=== PATIENT | male | born 1945 | race Caucasian/White ===

== ENCOUNTER 2018-01-18 22:33 | Observation (INO) | payer OTHER ==
--- NOTE | 2018-01-18 22:44 | Emergency Department Record ---
History of Present Illness - General Chief complaint: Pain Stated complaint: CHEST TIGHTNESS,SIDE AND BACK PAIN Time Seen by Provider: 01/18/18 22:43 Source: Patient Mode of Arrival: Ambulatory Limitations: No limitations - History of Present Illness Initial comments: 72 yo male presents to ED for evaluation of left-sided chest pain symptoms that began 3 days ago, reports pain with deep inspiration. Patient denies previous history of DVT/PE, reports mild cough symptoms without fevers, chills, nausea, or vomiting symptoms. Patient denies health problems at his baseline. MD Complaint: Other Onset/Timin -: Days(s) History of Same: No Quality: Sharp, Stabbing Consistency: Intermittent Improves with: Nothing Worsens with: Other (deep breaths) Associated Symptoms: Denies other symptoms - Related Data Home Medications Medication Instructions Recorded Confirmed Last Taken Finasteride [Finasteride] 1 mg PO DAILY 01/18/18 01/18/18 Unknown Allergies Allergy/AdvReac Type Severity Reaction Status Date / Time No Known Drug Allergies Allergy Verified 05/09/15 10:33 Review of Systems Constitutional: Denies: Chills, Fever, Malaise, Night sweats Eyes: Denies: Eye discharge, Eye pain ENT: Denies: Congestion, Ear pain, Epistaxis Respiratory: Reports: Cough. Denies: Dyspnea Cardiovascular: Reports: Chest pain. Denies: Dyspnea on exertion, Edema Endocrine: Denies: Fatigue, Heat or cold intolerance Gastrointestinal: Denies: Abdominal pain, Nausea, Vomiting Genitourinary: Denies: Incontinence, Retention Musculoskeletal: Denies: Arthralgia, Back pain, Gout, Joint swelling Skin: Denies: Bruising, Change in color Neurological: Denies: Abnormal gait, Confusion, Headache, Seizure Psychiatric: Denies: Anxiety Hematological/Lymphatic: Denies: Anemia, Blood Clots Past Medical History - SOCIAL HISTORY Smoking Status: Heavy tobacco smoker (>10/day) - RESPIRATORY Hx Respiratory Disorders: Yes Hx Bronchitis: Yes Hx Pneumonia: Yes - CARDIOVASCULAR Hx Cardio Disorders: Yes Hx Chest Pain: Yes Comment:: Hx Triple A, descending aorta aneurysm - NEURO Hx Neuro Disorders: Yes Hx Neuropathy: Yes Comment:: doctor said has the start of neuropathy - GI Hx GI Disorders: No - Hx Genitourinary Disorders: Yes Hx Prostate Problems: Yes - ENDOCRINE Hx Endocrine Disorders: Yes Hx Diabetes: Yes - MUSCULOSKELETAL Hx Musculoskeletal Disorders: No - PSYCH Hx Psych Problems: No - HEMATOLOGY/ONCOLOGY Hx Hematology/Oncology Disorders: No Family Medical History Hx Diabetes: Mother Hx Heart Disease: Father Physical Exam - General General Appearance: Alert, Oriented x3, Cooperative, Mild distress Limitations: No limitations - Head Head exam: Atraumatic, Normocephalic, Normal inspection Head exam detail: negative: Abrasion, Contusion, Murillo's sign, General tenderness, Hematoma, Laceration - Eye Eye exam: Normal appearance. negative: Conjunctival injection, Periorbital swelling, Periorbital tenderness, Scleral icterus - ENT Ear exam: negative: Auricular hematoma, Auricular trauma Nasal Exam: negative: Active bleeding, Discharge, Dried blood, Foreign body Mouth exam: negative: Drooling, Laceration, Tongue elevation - Neck Neck exam: Normal inspection. negative: Meningismus, Tenderness - Respiratory Respiratory exam: Normal lung sounds bilaterally. negative: Rales, Respiratory distress, Rhonchi, Stridor - Cardiovascular Cardiovascular Exam: Regular rate, Normal rhythm, Normal heart sounds - GI/Abdominal GI/Abdominal exam: Soft. negative: Rebound, Rigid, Tenderness - Rectal Rectal exam: Deferred - exam: Deferred - Extremities Extremities exam: Normal inspection. negative: Calf tenderness, Pedal edema, Tenderness - Back Back exam: Denies: CVA tenderness (R), CVA tenderness (L) - Neurological Neurological exam: Alert, Normal gait, Oriented X3 - Psychiatric Psychiatric exam: Normal affect, Normal mood - Skin Skin exam: Normal color. negative: Abrasion Type of lesion: negative: abrasion Course - Reevaluation(s) Reevaluation #1: 01/18/18 22:43 EKG: NST 84 LAD, normal intervals No acute ST-T wave changes are present Reevaluation #2: 01/18/18 23:17 Labs reviewed, D-Dimer 1.69, labs are otherwise grossly unremarkable for an acute process. Will perform CTA Chest and re-evaluate. Reevaluation #3: 01/19/18 02:04 CTA Chest: No PE Few bilateral pulmonary nodules, inflammatory vs. neoplastic-F/U in 3 months recommended Emphysema Patient was updated on all results, will admit for further evaluation. Medical Decision Making - Lab Data Result diagrams: 01/18/18 22:50 01/18/18 22:50 Disposition Disposition: Admit Clinical Impression: Chest pain Qualifiers: Chest pain type: unspecified Qualified Code(s): R07.9 - Chest pain, unspecified COPD (chronic obstructive pulmonary disease) Qualifiers: COPD type: unspecified COPD Qualified Code(s): J44.9 - Chronic obstructive pulmonary disease, unspecified Disposition: Acute Care Hospital Transfer Decision to Admit: Admit from ER Decision to Admit Date: 01/19/18 Decision to Admit Time: 02:08 Condition: (2) Stable Forms: Patient Portal Access Quality - Quality Measures Quality Measures: N/A - Blood Pressure Screening Does Patient Have Any of the Following: No Blood Pressure Classification: Pre-Hypertensive BP Reading Systolic Measurement: 166 Diastolic Measurement: 85 Screening for High Blood Pressure: < Pre-Hypertensive BP, F/U Documented > [ G8950] Pre-Hypertensive Follow-up Interventions: Referral to alternative/primary care provider.
[2018-01-18 22:58] LABS: BASO % 0.6 % (0-6); EOS % 3.1 % (0-6); GRAN % 51.6 % (47-80); HEMATOCRIT 42.8 % (42.0-52.0); HEMOGLOBIN 14.5 gm/dl (14.0-18.0); LYMPH % 33.5 % (16-45); MEAN CELL VOLUME 91.6 fl (81-97); MEAN CORPUSCULAR HGB CONC 33.9 g/dl (32-36); MEAN PLATELET VOLUME 9.3 fl (7.4-10.4); MONO % 11.2 % (0-9); PLATELET COUNT 305 K/uL (130-400); RED BLOOD COUNT 4.67 M/uL (4.40-5.70); RED CELL DISTRIBUTION WIDTH 13.1 % (11.5-14.5); WHITE BLOOD COUNT W/O DIFF 7.8 K/uL (4.2-12.2)
[2018-01-18] MEDS ORDERED: 0.9 % SODIUM CHLORIDE 1000ML 1,000 ML IV SCH (23:00)
[2018-01-18 23:04] LABS: BLOOD UREA NITROGEN 15 mg/dL (8-23); CREATININE 0.8 mg/dL (0.7-1.2); EST GLOMERULAR FILTRATION RATE > 60 mL/min
[2018-01-18 23:05] LABS: TOTAL PROTEIN 6.2 g/dL (6.6-8.7)
[2018-01-18 23:07] LABS: GLUCOSE,RANDOM 240 mg/dL (74-109)
[2018-01-18 23:10] LABS: ALB/GLOB RATIO 1.3 (1.1-1.8); ALBUMIN 3.5 g/dL (4.0-5.0); ALKALINE PHOSPHATASE 83 U/L (40-129)
[2018-01-19] MEDS ORDERED: METHYLPREDNISOLONE PF 125MG/VIAL IVP ONE (02:06)
[2018-01-19] MEDS ORDERED: KETOROLAC 30 MG/ML VIAL IVP ONE (02:06)
[2018-01-19] MEDS ORDERED: IPRATROPIUM/ALBUTEROL (0.5MG/3MG) NEB INH ONE (02:06)
[2018-01-19] MEDS ORDERED: ALBUTEROL SULFATE (0.083%) 2.5 MG/3 ML NEB INH PRN (02:34)
[2018-01-19] MEDS ORDERED: 0.9 % SODIUM CHLORIDE 1000ML 1,000 ML IV PRN (02:34)
[2018-01-19] MEDS: TAMSULOSIN HCL 0.4 MG CAP.ER.24H PO SCH ×2 (03:13→09:43)
[2018-01-19] MEDS: IPRATROPIUM/ALBUTEROL (0.5MG/3MG) NEB INH SCH ×3 (06:14→14:41)
[2018-01-19] MEDS ORDERED: METFORMIN 500 MG TABLET PO SCH (08:00)
[2018-01-19] MEDS ORDERED: FINASTERIDE 1 MG PO SCH (10:00)
[2018-01-19] MEDS ORDERED: METHYLPREDNISOLONE PF 125MG/VIAL IVP SCH (10:00)
--- NOTE | 2018-01-19 13:23 | History & Physical ---
History of Present Illness - Date of Service Date of Service for History & Physical: 01/19/18 - History of Present Illness Admitting Diagnosis: Chest pain. COPD History of Present Illness: 72yo male with CC of left rib pain. He has history of descending aortic aneurysm followed by the [place]. Patient presented for acute onset of a sharp left sided pain beginning last night after getting up for a drink of water. He says it felt like a sharp, cramping sensation under his left ribs. He decided to come to the ED. While in the ED, He had EKG that was negative for ST changes and unchanged from prior. 1st set of CE returned within normal. His DDimer was elevated so he underwent CTA which was negative for PE or other acute findings. He received solumedrol and breathing treatments and admitted for serial enzymes. 01/19/18- Patient states his pain resolved last evening. He denies any further pain in the chest or side. He said the pain didn't come on with activity and rest did not improve the pain. He denied feeling short of breath, nauseated, left arm pain, jaw pain or palpitations. He said the pain was located under his last ribs on the left side. He had pain like this in the past that was self resolving. He says he has some baseline cough and was coughing some yesterday, but denies feeling sick or like he has chest congestion. He denies any shortness of breath, difficulty breathing, or cough today. He follows with the [place] and [facility] for his aneurysm. He has had a stress test about 3 years ago that was normal and denies any cardiac history. Travel Screening - Travel/Exposure Within Last 30 Days Have you traveled within the last 30 days?: No - Travel/Exposure Within Last Year Have you traveled outside the [place] in the last year?: No - Additonal Travel Details Have you been exposed to anyone with a communicable illness?: No - Travel Symptoms Symptom Screening: None Review of Systems Constitutional: Denies: Chills, Fever, Malaise, Night sweats Eyes: Denies: Eye discharge, Eye pain ENT: Denies: Congestion, Ear pain, Epistaxis Respiratory: Reports: Cough. Denies: Dyspnea Cardiovascular: Reports: Chest pain. Denies: Dyspnea on exertion, Edema Endocrine: Denies: Fatigue, Heat or cold intolerance Gastrointestinal: Denies: Abdominal pain, Nausea, Vomiting Genitourinary: Denies: Incontinence, Retention Musculoskeletal: Denies: Arthralgia, Back pain, Gout, Joint swelling Skin: Denies: Bruising, Change in color Neurological: Denies: Abnormal gait, Confusion, Headache, Seizure Psychiatric: Denies: Anxiety Hematological/Lymphatic: Denies: Anemia, Blood Clots Past Medical History - SOCIAL HISTORY Smoking Status: Former smoker Alcohol Use: None Drug Use: None - RESPIRATORY Hx Respiratory Disorders: Yes Hx Bronchitis: Yes Hx Pneumonia: Yes - CARDIOVASCULAR Hx Cardio Disorders: Yes Hx Chest Pain: Yes Comment:: Hx AAA, descending aortic aneurysm - NEURO Hx Neuro Disorders: Yes Hx Neuropathy: Yes Comment:: doctor said has the start of neuropathy - GI Hx GI Disorders: No - Hx Genitourinary Disorders: Yes Hx Prostate Problems: Yes - ENDOCRINE Hx Endocrine Disorders: Yes Hx Diabetes: Yes (oral controlled) - MUSCULOSKELETAL Hx Musculoskeletal Disorders: No - PSYCH Hx Psych Problems: No - HEMATOLOGY/ONCOLOGY Hx Hematology/Oncology Disorders: No Family Medical History Any Significant Family History?: Yes Hx Diabetes: Mother Hx Heart Disease: Father H&P Meds/Allergies - Allergies Allergies: Allergies Allergy/AdvReac Type Severity Reaction Status Date / Time No Known Drug Allergies Allergy Verified 05/09/15 10:33 - Home Medications Home Medications Medication Instructions Recorded Confirmed Last Taken Finasteride [Finasteride] 1 mg PO DAILY 01/18/18 01/18/18 Unknown - Active Medications Active Medications: Current Medications Albuterol Sulfate () 2.5 mg INH RESP.Q4H PRN PRN Reason: DIFFICULTY IN BREATHING Albuterol/Ipratropium (Duoneb) 3 ml INH RESP.Q4H [facility] Last Admin: 01/19/18 10:10 Dose: 3 ml Sodium Chloride () 1,000 mls @ 15 mls/hr IV .Q24H PRN PRN Reason: LARGE VOLUME IV Metformin HCl (Glucophage Ir) 500 mg PO DAILY [facility] Methylprednisolone Sodium Succinate (Solu-Medrol) 125 mg IVP DAILY [facility] Last Admin: 01/19/18 09:42 Dose: 125 mg Non-Formulary Medication (Finasteride [Finasteride]) 1 mg PO DAILY [facility] Last Admin: 01/19/18 09:41 Dose: Not Given Tamsulosin HCl (Flomax) 0.4 mg PO BID [facility] Last Admin: 01/19/18 09:43 Dose: 0.4 mg Physical Exam - Vital Signs Vital Signs: Vital Signs - Last 24 Hrs Temp Pulse Pulse Pulse Resp BP Pulse Ox 01/19/18 10:12 95 01/19/18 10:11 95 H 17 97 01/19/18 09:48 97.9 F 99 H 16 106/49 93 L 01/19/18 09:00 86 99 H 16 01/19/18 06:14 102 H 20 96 01/19/18 02:34 97.7 F 77 20 145/72 96 - General General Appearance: Alert, Oriented x3, Cooperative, No acute distress Limitations: No limitations - Head Head exam: Atraumatic, Normocephalic, Normal inspection Head exam detail: negative: Abrasion, Contusion, Murillo's sign, General tenderness, Hematoma, Laceration - Eye Eye exam: Normal appearance. negative: Conjunctival injection, Periorbital swelling, Periorbital tenderness, Scleral icterus - ENT Ear exam: negative: Auricular hematoma, Auricular trauma Nasal Exam: negative: Active bleeding, Discharge, Dried blood, Foreign body Mouth exam: negative: Drooling, Laceration, Tongue elevation - Neck Neck exam: Normal inspection. negative: Meningismus, Tenderness - Respiratory Respiratory exam: Normal lung sounds bilaterally. negative: Rales, Respiratory distress, Rhonchi, Stridor - Cardiovascular Cardiovascular Exam: Regular rate, Normal rhythm, Normal heart sounds - GI/Abdominal GI/Abdominal exam: Soft. negative: Rebound, Rigid, Tenderness - Rectal Rectal exam: Deferred - exam: Deferred - Extremities Extremities exam: Normal inspection. negative: Calf tenderness, Pedal edema, Tenderness - Back Back exam: Denies: CVA tenderness (R), CVA tenderness (L) - Neurological Neurological exam: Alert, Normal gait, Oriented X3 - Psychiatric Psychiatric exam: Normal affect, Normal mood - Skin Skin exam: Normal color. negative: Abrasion Type of lesion: negative: abrasion Results - Labs Result Diagrams: 01/18/18 22:50 01/18/18 22:50 Labs Last 24 Hours: Laboratory Results - last 24 hr 01/19/18 06:22 Troponin T < 0.010 - Imaging and Cardiology CT scan - chest Status: Report reviewed VTE H&P Assessment - Risk for VTE Risk for VTE: Yes Risk Level: High Risk Assessment Date: 01/19/18 Risk Assessment Time: 13:31 VTE Orders Placed or Will Be Placed: Yes Plan - Detailed Diagnosis and Plan (1) Chest pain Current Visit: Yes Status: Acute Qualifiers: Chest pain type: intercostal pain Qualified Code(s): R07.82 - Intercostal pain Base Code: R07.9 - CHEST PAIN, UNSPECIFIED Comment: 01/19/18- resolved. EKG without ischemic changes. 1st and 2nd set of enzymes returned wnl. Pain is located lower in the left ribs and appears to be msk in origin. CTA was negative for PE. He had a few pulmonary nodules in the right lung that were seen on previous imaging. No acute findings on imaging. CBC and CMP were unremarkable. -continue serial enzymes -continue tele -will plan to discharge home today with [facility]. He does not need further cardiac work up at this point. (2) Full code status Current Visit: Yes Status: Acute Base Code: Z78.9 - OTHER SPECIFIED HEALTH STATUS Comment: 01/19/18- patient is full code (3) DVT prophylaxis Current Visit: Yes Status: Acute Base Code: [id number] - Comment: 01/19/18- patient is high risk with age and restricted mobility. -will do lovenox 40mg sq daily for prophylaxis
--- NOTE | 2018-01-19 15:40 | Discharge Summary ---
Providers Discharge Summary Date: 01/19/18 Date of admission: 01/19/18 02:26 Expected Date of Discharge: 01/19/18 Attending physician: ASHKAN DE LA FUENTE Physical Exam - Vital Signs Vital Signs: Vital Signs - Last 24 Hrs Temp Pulse Pulse Pulse Resp BP Pulse Ox 01/19/18 10:12 95 01/19/18 10:11 95 H 17 97 01/19/18 09:48 97.9 F 99 H 16 106/49 93 L 01/19/18 09:00 86 99 H 16 01/19/18 06:14 102 H 20 96 01/19/18 02:34 97.7 F 77 20 145/72 96 - General General Appearance: Alert, Oriented x3, Cooperative, No acute distress Limitations: No limitations - Head Head exam: Atraumatic, Normocephalic, Normal inspection Head exam detail: negative: Abrasion, Contusion, Murillo's sign, General tenderness, Hematoma, Laceration - Eye Eye exam: Normal appearance. negative: Conjunctival injection, Periorbital swelling, Periorbital tenderness, Scleral icterus - ENT Ear exam: negative: Auricular hematoma, Auricular trauma Nasal Exam: negative: Active bleeding, Discharge, Dried blood, Foreign body Mouth exam: negative: Drooling, Laceration, Tongue elevation - Neck Neck exam: Normal inspection. negative: Meningismus, Tenderness - Respiratory Respiratory exam: Normal lung sounds bilaterally. negative: Rales, Respiratory distress, Rhonchi, Stridor - Cardiovascular Cardiovascular Exam: Regular rate, Normal rhythm, Normal heart sounds - GI/Abdominal GI/Abdominal exam: Soft. negative: Rebound, Rigid, Tenderness - Rectal Rectal exam: Deferred - exam: Deferred - Extremities Extremities exam: Normal inspection. negative: Calf tenderness, Pedal edema, Tenderness - Back Back exam: Denies: CVA tenderness (R), CVA tenderness (L) - Neurological Neurological exam: Alert, Normal gait, Oriented X3 - Psychiatric Psychiatric exam: Normal affect, Normal mood - Skin Skin exam: Normal color. negative: Abrasion Type of lesion: negative: abrasion Hospitalization - Hospitalization Admission Diagnosis: Chest pain. COPD - Problem List/Discharge Diagnosis (1) Chest pain Current Visit: Yes Status: Acute Discharge Diagnosis: Chest pain type: intercostal pain Qualified Code(s): R07.82 - Intercostal pain Base Code: R07.9 - CHEST PAIN, UNSPECIFIED Comment: 01/19/18- resolved. EKG without ischemic changes. All sets of enzymes returned wnl. Pain was located lower in the left ribs and appeared to be musculoskeletal in nature. CTA was negative for PE. He had a few pulmonary nodules in the right lung that were seen on previous imaging. No acute findings on imaging. CBC and CMP were unremarkable. -will plan to discharge home today with [place] follow up. -discussed reasons to return to ED including new/worsening symptoms (2) Full code status Current Visit: Yes Status: Acute Base Code: Z78.9 - OTHER SPECIFIED HEALTH STATUS Comment: 01/19/18- patient is full code (3) DVT prophylaxis Current Visit: Yes Status: Acute Base Code: [id number] - Comment: 01/19/18- patient is high risk with age and restricted mobility. -will do lovenox 40mg sq daily for prophylaxis - Hospitalization Course Disposition: Home, Self-Care Hospital Course: 72yo male with CC of left rib pain. He has history of descending aortic aneurysm followed by the [place]. Patient presented for acute onset of a sharp left sided pain beginning last night after getting up for a drink of water. He says it felt like a sharp, cramping sensation under his left ribs. He decided to come to the ED. While in the ED, He had EKG that was negative for ST changes and unchanged from prior. 1st set of CE returned within normal. His DDimer was elevated so he underwent CTA which was negative for PE or other acute findings. He received solumedrol and breathing treatments and admitted for serial enzymes. 01/19/18- Patient states his pain resolved last evening. He denies any further pain in the chest or side. He said the pain didn't come on with activity and rest did not improve the pain. He denied feeling short of breath, nauseated, left arm pain, jaw pain or palpitations. He said the pain was located under his last ribs on the left side. He had pain like this in the past that was self resolving. He says he has some baseline cough and was coughing some yesterday, but denies feeling sick or like he has chest congestion. He denies any shortness of breath, difficulty breathing, or cough today. He follows with the [place] and [facility] for his aneurysm. He has had a stress test about 3 years ago that was normal and denies any cardiac history. Condition at Discharge: (2) Stable Discharge Medications - Discharge Medications Home Medications: Ambulatory Orders Metformin HCl [Fortamet] 500 mg PO DAILY 03/02/15 [Last Taken 03/01/15] Tamsulosin HCl [Flomax] 0.4 mg PO BID 03/02/15 [Last Taken 03/01/15] Finasteride 1 mg PO DAILY 01/18/18 [Last Taken Unknown] Discharge Plan - Discharge Instructions Activity at Discharge: Resume Usual Activities As Tolerated Diet at Discharge: Low Fat, Low Cholesterol, Low Salt Diet Additional Instructions: Follow up with your provider at the [place]. Hold your metformin until 01/21 then may resume. continue all other home medications. Please call with any questions or concerns Return to ED for any new or worsening concerns Quality Measures - Quality Measures Quality Measures: Advance Directives, Documentation of Current Medications in Medical Record, Elder Maltreatment Screen and Follow-Up Plan, Screening for High Blood Pressure and F/U Documented - Current Medications Quality Measure: Measure #130: Documentation of Current Medications Documentation of Current Medications: <Current Medications Documented/Reviewed> [G8427] - Blood Pressure Screening Quality Measure: Screening for High Blood Pressure and Follow-Up Documented Does Patient Have Any of the Following: No, Active Dx of HTN Blood Pressure Classification: Pre-Hypertensive BP Reading Systolic Measurement: 124 Diastolic Measurement: 81 Screening for High Blood Pressure: < Pre-Hypertensive BP, F/U Documented > [ G8950] Pre-Hypertensive Follow-up Interventions: Referral to alternative/primary care provider. - Advance Directives Quality Measure: Measure #47: Care Plan Advance Directives Established: No Advance Directives Information Provided To Patient: No Advance Directives on File: No Living Will: No Power of Liquor Rectifier: No Advance Care Planning: <Care Plan/Decision Maker Not Decided; Discussed & Documented> [8948T] - Elder Abuse Suspicion Index Screening: Elder Abuse Suspicion Index Screening Rely on people for bathing, dressing, shopping, banking, etc: No Prevented from getting food, clothes, medication, etc: No Made to feel shamed or threatened by someone: No Forced to sign papers or use money against will: No Feel afraid, touched in ways not wanted or hurt physically: No Poor eye contact, withdrawn, malnourished, cuts or bruises: No Screening Result: Negative result EASI Reference Information: Jerrod PATHAK, Chelsey C, Renard D, Genevieve Granados.Development and validation of a tool to assist physicians identification of elder abuse: The Elder Abuse Suspicion Index (EASI ). Journal of Elder Abuse and Neglect, 2008; 20 (3): 276-300. - Elder Maltreatment Screen Quality Measures: Elder Maltreatment Screen and Follow-Up Plan Elder Maltreatment Screen: <Negative, No Follow-Up Plan Required> [G8734]
== END 2018-01-19 16:45 | disposition home or self-care (01) ==
LOC: ER 22:33 → MEDSURG 01-19 02:26
PROVIDERS: ADMIT Internal Medicine; ATTEND Internal Medicine
DX: R07.82 Intercostal pain (principal); I71.4 Abdominal aortic aneurysm, without rupture; J44.9 Chronic obstructive pulmonary disease, unspecified; Z87.891 Personal history of nicotine dependence; E11.9 Type 2 diabetes mellitus without complications; Z79.84 Long term (current) use of oral hypoglycemic drugs
CPT/HCPCS: 99285 ×2; 96374; 96375; 85025; 80053; 84484 ×2; 85379; 94640 ×2; 94761; 93005; 93010; G0378; J1885; 99236; J2930; J7030

== ENCOUNTER 2018-09-04 15:56 | Emergency (ER) | payer MEDICARE, OTHER ==
--- NOTE | 2018-09-04 16:18 | Emergency Department Record ---
History of Present Illness - General Chief Complaint: Abdominal Pain Stated Complaint: ABD PAIN,URINARY PAIN Time Seen by Provider: 09/04/18 16:16 Source: Patient, RN notes reviewed Mode of Arrival: Ambulatory - History of Present Illness Initial Comments: burning on urination stated about 3 days ago and left testicle is sore, epidydmitis is sore but no signs of torsion. [facility] [place]. PMH TURP by Dr. Wilks about 6 weeks ago, also AAA 4.5 cm and hasn't changed in 3 years. Wuit smoking one year ago. Location: Suprapubic Radiation: None Migration to: No migration Severity: Mild Severity scale (1-10): 5 - Related Data Previous Rx's Medication Instructions Recorded Ciprofloxacin HCl [Cipro] 500 mg PO Q12HR #20 tablet 09/04/18 Allergies Allergy/AdvReac Type Severity Reaction Status Date / Time Penicillins Allergy HIVES Verified 09/04/18 16:07 Travel Screening - Travel/Exposure Within Last 30 Days Have you traveled within the last 30 days?: No Review of Systems Reviewed: No additional complaints except as noted below Constitutional: Reports: As per HPI. Denies: Chills, Fever, Malaise, Night sweats, Weakness, Weight change Eyes: Reports: As per HPI. Denies: Eye discharge, Eye pain, Photophobia, Vision change ENT: Reports: As per HPI. Denies: Congestion, Dental pain, Ear pain, Epistaxis , Hearing loss, Throat pain Respiratory: Reports: As per HPI. Denies: Cough, Dyspnea, Hemoptysis, Stridor, Wheezes Cardiovascular: Reports: As per HPI. Denies: Arrhythmia, Chest pain, Dyspnea on exertion, Edema, Murmurs, Orthopnea, Palpitations, Paroxysmal nocturnal dyspnea, Rheumatic Fever, Syncope Endocrine: Reports: As per HPI. Denies: Fatigue, Heat or cold intolerance, Polydipsia, Polyuria Gastrointestinal: Reports: As per HPI. Denies: Abdominal pain, Constipation, Diarrhea, Hematemesis, Hematochezia, Melena, Nausea, Vomiting Genitourinary: Reports: As per HPI, Dysuria, Frequency, Testicular pain. Denies : Hematuria, Incontinence, Retention, Testicular mass, Urgency Musculoskeletal: Reports: As per HPI. Denies: Arthralgia, Back pain, Gout, Joint swelling, Myalgia, Neck pain Skin: Reports: As per HPI. Denies: Bruising, Change in color, Change in hair/ nails, Lesions, Pruritus, Rash Neurological: Reports: As per HPI. Denies: Abnormal gait, Confusion, Headache, Numbness, Paresthesias, Seizure, Tingling, Tremors, Vertigo, Weakness Psychiatric: Reports: As per HPI. Denies: Anxiety, Auditory hallucinations, Depression, Homicidal thoughts, Suicidal thoughts, Visual hallucinations Hematological/Lymphatic: Reports: As per HPI. Denies: Anemia, Blood Clots, Easy bleeding, Easy bruising, Swollen glands Past Medical History - SOCIAL HISTORY Smoking Status: Former smoker Alcohol Use: None Drug Use: None - RESPIRATORY Hx Respiratory Disorders: Yes Hx Bronchitis: Yes Hx Pneumonia: Yes - CARDIOVASCULAR Hx Cardio Disorders: Yes Hx Chest Pain: Yes Comment:: Hx AAA, descending aortic aneurysm - NEURO Hx Neuro Disorders: Yes Hx Neuropathy: Yes - GI Hx GI Disorders: No - Hx Genitourinary Disorders: Yes Hx Prostate Problems: Yes - ENDOCRINE Hx Endocrine Disorders: Yes Hx Diabetes: Yes (oral controlled) - MUSCULOSKELETAL Hx Musculoskeletal Disorders: No - PSYCH Hx Psych Problems: No - HEMATOLOGY/ONCOLOGY Hx Hematology/Oncology Disorders: No Family Medical History Any Significant Family History?: Yes Hx Diabetes: Mother Hx Heart Disease: Father Physical Exam - General General Appearance: Alert, Oriented x3, Cooperative, No acute distress - Head Head exam: Normal inspection - Eye Eye exam: Normal appearance, PERRL Pupils: Normal accommodation - ENT ENT exam: Normal exam, Mucous membranes moist, Normal external ear exam, Normal orophraynx, TM's normal bilaterally Ear exam: Normal external inspection. negative: External canal tenderness Nasal Exam: Normal inspection. negative: Discharge, Sinus tenderness Mouth exam: Normal external inspection, Tongue normal Teeth exam: Normal inspection. negative: Dental caries Throat exam: Normal inspection. negative: Tonsillar erythema, Tonsillar exudate - Neck Neck exam: Normal inspection, Full ROM. negative: Tenderness - Respiratory Respiratory exam: Normal lung sounds bilaterally. negative: Respiratory distress - Cardiovascular Cardiovascular Exam: Regular rate, Normal rhythm, Normal heart sounds - GI/Abdominal GI/Abdominal exam: Soft, Normal bowel sounds. negative: Tenderness - Rectal Rectal exam: Deferred - exam: Deferred, Testicular tenderness (epididymitis pain and no signs of torsion) - Extremities Extremities exam: Normal inspection, Full ROM, Normal capillary refill. negative: Tenderness - Back Back exam: Reports: Normal inspection, Full ROM. Denies: Muscle spasm, Rash noted, Tenderness - Neurological Neurological exam: Alert, Normal gait, Oriented X3, Reflexes normal - Psychiatric Psychiatric exam: Normal affect, Normal mood - Skin Skin exam: Dry, Intact, Normal color, Warm Course Vital Signs 09/04/18 16:02 Temperature 97.4 F L Pulse Rate 105 H Respiratory 20 Rate Blood Pressure 128/66 Pulse Ox 96 - Reevaluation(s) Reevaluation #1: patient said he will use naprosyn for his pain and he has plenty of that. 09/04/18 17:36 Medical Decision Making - Data Complexity MDM Data: Labs Ordered and/or Reviewed (ua wbc 21-35 ,panchito one plus,WBC 8,900), X -Ray Ordered and/or Reviewed (US scrotum negative) - Lab Data Result diagrams: 09/04/18 16:35 09/04/18 16:48 Disposition Clinical Impression: UTI (urinary tract infection) Qualifiers: Urinary tract infection type: acute cystitis Hematuria presence: without hematuria Qualified Code(s): N30.00 - Acute cystitis without hematuria Disposition: Home, Self-Care Condition: (1) Good Instructions: Urinary Tract Infection in Men (ED) Additional Instructions: follow up with family Dr in 3 days [facility] follow up with Dr. Hagan in 7 day return if worse naprosyn twice a day for pain he already has that Prescriptions: Ciprofloxacin HCl [Cipro] 500 mg PO Q12HR #20 tablet Forms: Patient Portal Access Time of Disposition: 17:37 Quality - Quality Measures Quality Measures: N/A - Blood Pressure Screening Does Patient Have Any of the Following: No Blood Pressure Classification: Pre-Hypertensive BP Reading Systolic Measurement: 128 Diastolic Measurement: 66 Screening for High Blood Pressure: < Pre-Hypertensive BP, F/U Documented > [ G8950] Pre-Hypertensive Follow-up Interventions: Referral to alternative/primary care provider.
[2018-09-04 16:26] LABS: URINE BILIRUBIN NEGATIVE (NEGATIVE); URINE BLOOD MODERATE (NEGATIVE); URINE COLOR YELLOW; URINE GLUCOSE (UA) NEGATIVE (NEGATIVE); URINE KETONE NEGATIVE (NEGATIVE); URINE LEUKOCYTE ESTERASE TRACE (NEGATIVE); URINE NITRITE NEGATIVE (NEGATIVE); URINE UROBILINOGEN 0.2 E.U./dL (0.20 - 1.00)
[2018-09-04 16:37] LABS: URINE APPEARANCE SL CLOUDY
[2018-09-04 16:49] LABS: URINE EPITHELIAL CELLS 0 - 2 (FEW); URINE WBC 21 - 35 (0-2/hpf)
[2018-09-04 16:50] LABS: URINE BACTERIA 1+
[2018-09-04 16:53] LABS: BASO % 0.5 % (0-6); EOS % 0.9 % (0-6); GRAN % 77.4 % (47-80); HEMOGLOBIN 14.7 gm/dl (14.0-18.0); LYMPH % 15.9 % (16-45); MEAN CELL VOLUME 91.3 fl (81-97); MEAN CORPUSCULAR HEMOGLOBIN 29.2 pg (27-33); MEAN PLATELET VOLUME 9.5 fl (7.4-10.4); MONO % 5.3 % (0-9); PLATELET COUNT 267 K/uL (130-400); RED BLOOD COUNT 5.04 M/uL (4.40-5.70); RED CELL DISTRIBUTION WIDTH 13.2 % (11.5-14.5); WHITE BLOOD COUNT W/O DIFF 8.9 K/uL (4.2-12.2)
[2018-09-04 16:58] LABS: BLOOD UREA NITROGEN 18 mg/dL (8-23); CREATININE 0.9 mg/dL (0.7-1.2); EST GLOMERULAR FILTRATION RATE > 60 mL/min
[2018-09-04 17:01] LABS: GLUCOSE,RANDOM 143 mg/dL (74-109)
[2018-09-04] MEDS ORDERED: CIPROFLOXACIN HCL 500 MG TABLET PO ONE (17:28)
--- NOTE | 2018-09-08 14:42 | ULTRASOUND REPORT ---
EXAM: EMERGENCY SCROTAL ULTRASOUND WITH DOPPLER HISTORY: LEFT TESTICULAR PAIN FOR TWO WEEKS. HAD TURP SIX WEEKS AGO. PATIENT FEELS A LUMP. TECHNIQUE: Real-time ultrasound examination of the scrotal content was performed bilaterally. Because of the history of pain, Doppler ultrasound also utilized with color flow and spectral analysis. Comparison: None. FINDINGS: The right testicle is identified measuring about 2.7 x 3.2 x 4.1 cm in size. No definite intratesticular mass identified. There is a moderate hydrocele present on the right. Arterial and venous flow evident in the right testicle with color flow and spectral analysis Doppler. The head of the epididymis measures about 1.9 cm in size. The left testicle is identified measuring approximately 2.4 x 2.8 x 4.3 cm in size. No definite intratesticular mass seen on the left. Moderate hydrocele on the left. Arterial and venous flow evident in the left testicle with color flow and spectral analysis Doppler. The head of the epididymis on the left is about 1.9 cm in size. There may be a small varicocele on the left. There is likely a small appendix of testis bilaterally as well. IMPRESSION: 1. MODERATE HYDROCELES BILATERALLY. 2. FLOW IS SEEN IN THE TESTICLES BILATERALLY. 3. PROBABLE VARICOCELE ON THE LEFT. JOB NUMBER: [id number] MTDD
== END 2018-09-04 17:45 | disposition home or self-care (01) ==
LOC: ER 15:56
DX: N30.00 Acute cystitis without hematuria (principal); E11.9 Type 2 diabetes mellitus without complications; Z87.891 Personal history of nicotine dependence
CPT/HCPCS: 76870; 80048; 81001; 85025; 99283

== ENCOUNTER 2018-10-19 11:43 | Emergency (ER) | payer OTHER ==
[2018-10-19] MEDS ORDERED: IPRATROPIUM/ALBUTEROL (0.5MG/3MG) NEB INH ONE (12:16)
[2018-10-19 12:29] LABS: BASO % 0.6 % (0-6); EOS % 1.6 % (0-6); GRAN % 61.5 % (47-80); HEMATOCRIT 45.4 % (42.0-52.0); HEMOGLOBIN 15.1 gm/dl (14.0-18.0); LYMPH % 28.3 % (16-45); MEAN CELL VOLUME 89.4 fl (81-97); MEAN CORPUSCULAR HEMOGLOBIN 29.7 pg (27-33); MEAN CORPUSCULAR HGB CONC 33.3 g/dl (32-36); MEAN PLATELET VOLUME 9.7 fl (7.4-10.4); PLATELET COUNT 292 K/uL (130-400); RED BLOOD COUNT 5.08 M/uL (4.40-5.70); RED CELL DISTRIBUTION WIDTH 12.7 % (11.5-14.5); WHITE BLOOD COUNT W/O DIFF 6.9 K/uL (4.2-12.2)
[2018-10-19 12:48] LABS: BLOOD UREA NITROGEN 12 mg/dL (8-23); CREATININE 0.9 mg/dL (0.7-1.2); EST GLOMERULAR FILTRATION RATE > 60 mL/min; TOTAL PROTEIN 7.3 g/dL (6.6-8.7)
[2018-10-19 12:50] LABS: GLUCOSE,RANDOM 245 mg/dL (74-109)
[2018-10-19 12:53] LABS: ALB/GLOB RATIO 1.6 (1.1-1.8); ALBUMIN 4.5 g/dL (4.0-5.0); ALKALINE PHOSPHATASE 68 U/L (40-129); ALT/SGPT 14 U/L (<41); AST/SGOT 22 U/L (10.0-50.0)
[2018-10-19 12:55] LABS: NTpro B-NATRIURETIC PEPTIDE 9.17 pg/mL (<125)
--- NOTE | 2018-10-19 13:42 | Emergency Department Record ---
History of Present Illness - General Chief Complaint: Shortness of breath Stated Complaint: VLADIMIR Time Seen by Provider: 10/19/18 11:57 Source: Patient Mode of Arrival: Ambulatory Limitations: No limitations - History of Present Illness Initial Comments: pt has been increasingly sob and having chest pain and indigestion. he thinks he has pneumonia. 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 pt also has been wheezing. he has no inhalers. MD Complaint: Chest pain, Shortness of breath Onset/Timin -: Days(s) Radiation: Other Severity: Mild Severity scale (1-10): 5 Quality: Sharp Consistency: Constant Improves With: Nothing Worsens With: Lying flat Known History Of: Other Associated Symptoms: Chest pain, Cough, Sputum production Treatments Prior to Arrival: None - Related Data Home Oxygen Therapy: No Previous Rx's Medication Instructions Recorded Albuterol Sulfate [Proventil Hfa] 1 - 2 puff INH .EVERY 4-6 HOURS 10/19/18 PRN #1 inhaler Prednisone [Prednisone 20Mg] 20 mg PO Q12HR #4 tab 10/19/18 Allergies Allergy/AdvReac Type Severity Reaction Status Date / Time Penicillins Allergy HIVES Verified 09/04/18 16:07 Travel Screening - Travel/Exposure Within Last 30 Days Have you traveled within the last 30 days?: No Review of Systems Reviewed: No additional complaints except as noted below Constitutional: Reports: As per HPI. Denies: Chills, Fever, Malaise, Night sweats, Weakness, Weight change Eyes: Reports: As per HPI. Denies: Eye discharge, Eye pain, Photophobia, Vision change ENT: Reports: As per HPI. Denies: Congestion, Dental pain, Ear pain, Epistaxis , Hearing loss, Throat pain Respiratory: Reports: As per HPI. Denies: Cough, Dyspnea, Hemoptysis, Stridor, Wheezes Cardiovascular: Reports: As per HPI. Denies: Arrhythmia, Chest pain, Dyspnea on exertion, Edema, Murmurs, Orthopnea, Palpitations, Paroxysmal nocturnal dyspnea, Rheumatic Fever, Syncope Endocrine: Reports: As per HPI. Denies: Fatigue, Heat or cold intolerance, Polydipsia, Polyuria Gastrointestinal: Reports: As per HPI. Denies: Abdominal pain, Constipation, Diarrhea, Hematemesis, Hematochezia, Melena, Nausea, Vomiting Genitourinary: Reports: As per HPI. Denies: Dysuria, Frequency, Hematuria, Incontinence, Retention, Testicular pain, Testicular mass, Urgency Musculoskeletal: Reports: As per HPI. Denies: Arthralgia, Back pain, Gout, Joint swelling, Myalgia, Neck pain Skin: Reports: As per HPI. Denies: Bruising, Change in color, Change in hair/ nails, Lesions, Pruritus, Rash Neurological: Reports: As per HPI. Denies: Abnormal gait, Confusion, Headache, Numbness, Paresthesias, Seizure, Tingling, Tremors, Vertigo, Weakness Psychiatric: Reports: As per HPI. Denies: Anxiety, Auditory hallucinations, Depression, Homicidal thoughts, Suicidal thoughts, Visual hallucinations Hematological/Lymphatic: Reports: As per HPI. Denies: Anemia, Blood Clots, Easy bleeding, Easy bruising, Swollen glands Past Medical History - SOCIAL HISTORY Smoking Status: Former smoker - RESPIRATORY Hx Respiratory Disorders: Yes Hx Bronchitis: Yes Hx Pneumonia: Yes - CARDIOVASCULAR Hx Cardio Disorders: Yes Hx Chest Pain: Yes Comment:: Hx AAA, descending aortic aneurysm - NEURO Hx Neuro Disorders: Yes Hx Neuropathy: Yes - GI Hx GI Disorders: No - Hx Genitourinary Disorders: Yes Hx Prostate Problems: Yes - ENDOCRINE Hx Endocrine Disorders: Yes Hx Diabetes: Yes (oral controlled) - MUSCULOSKELETAL Hx Musculoskeletal Disorders: No - PSYCH Hx Psych Problems: No - HEMATOLOGY/ONCOLOGY Hx Hematology/Oncology Disorders: No Family Medical History Any Significant Family History?: Yes Hx Diabetes: Mother Hx Heart Disease: Father Physical Exam - General General Appearance: Alert, Oriented x3, Cooperative, No acute distress - Head Head exam: Normal inspection - Eye Eye exam: Normal appearance, PERRL, EOMI Pupils: Normal accommodation - ENT ENT exam: Normal exam, Mucous membranes moist, Normal external ear exam, Normal orophraynx Ear exam: Normal external inspection. negative: External canal tenderness Nasal Exam: Normal inspection. negative: Discharge, Sinus tenderness Mouth exam: Normal external inspection, Tongue normal Teeth exam: Normal inspection. negative: Dental caries Throat exam: Normal inspection. negative: Tonsillar erythema, Tonsillar exudate - Neck Neck exam: Normal inspection, Full ROM. negative: Tenderness - Respiratory Respiratory exam: Normal lung sounds bilaterally. negative: Respiratory distress - Cardiovascular Cardiovascular Exam: Regular rate, Normal rhythm, Normal heart sounds - GI/Abdominal GI/Abdominal exam: Soft, Normal bowel sounds. negative: Tenderness - Rectal Rectal exam: Deferred - exam: Deferred - Extremities Extremities exam: Normal inspection, Full ROM, Normal capillary refill. negative: Tenderness - Back Back exam: Reports: Normal inspection, Full ROM. Denies: Muscle spasm, Rash noted, Tenderness - Neurological Neurological exam: Alert, CN II-XII intact, Normal gait, Oriented X3 - Psychiatric Psychiatric exam: Normal affect, Normal mood - Skin Skin exam: Dry, Intact, Normal color, Warm Course Vital Signs 10/19/18 10/19/18 11:46 12:36 Pulse Rate 97 H 94 H Respiratory 24 18 Rate Blood Pressure 118/99 Pulse Ox 95 99 Medical Decision Making - Lab Data Result diagrams: 10/19/18 11:50 10/19/18 11:50 Lab Results 10/19/18 10/19/18 10/19/18 Range/Units 11:50 11:50 11:50 WBC 6.9 (4.2-12.2) K/uL RBC 5.08 (4.40-5.70) M/uL Hgb 15.1 (14.0-18.0) gm/dl Hct 45.4 (42.0-52.0) % MCV 89.4 (81-97) fl MCH 29.7 (27-33) pg MCHC 33.3 (32-36) g/dl RDW 12.7 (11.5-14.5) % Plt Count 292 (130-400) K/uL MPV 9.7 (7.4-10.4) fl Gran % 61.5 (47-80) % Lymphocytes % 28.3 (16-45) % Monocytes % 8.0 (0-9) % Eosinophils % 1.6 (0-6) % Basophils % 0.6 (0-6) % D-Dimer 1.25 H (0-0.59) mg/L FEU Sodium 137 (136-145) mmol/L Potassium 4.1 (3.4-4.5) mmol/L Chloride 96 L (98-107) mmol/L Carbon Dioxide 23.0 (22-29) mmol/L Anion Gap 18.0 H (7-16) BUN 12 (8-23) mg/dL Creatinine 0.9 (0.7-1.2) mg/dL Estimated GFR > 60 mL/min Random Glucose 245 H (74-109) mg/dL Calcium 9.5 (8.8-10.2) mg/dL Total Bilirubin 0.80 (0.2-1.0) mg/dL AST 22 (10.0-50.0) U/L ALT 14 (<41) U/L Alkaline Phosphatase 68 (40-129) U/L Troponin T (0-0.010) ng/mL NT-Pro-B Natriuret Pep 9.17 (<125) pg/mL Total Protein 7.3 (6.6-8.7) g/dL Albumin 4.5 (4.0-5.0) g/dL Globulin 2.8 (1.4-4.8) gm/dL Albumin/Globulin Ratio 1.6 (1.1-1.8) 10/19/18 Range/Units 11:50 WBC (4.2-12.2) K/uL RBC (4.40-5.70) M/uL Hgb (14.0-18.0) gm/dl Hct (42.0-52.0) % MCV (81-97) fl MCH (27-33) pg MCHC (32-36) g/dl RDW (11.5-14.5) % Plt Count (130-400) K/uL MPV (7.4-10.4) fl Gran % (47-80) % Lymphocytes % (16-45) % Monocytes % (0-9) % Eosinophils % (0-6) % Basophils % (0-6) % D-Dimer (0-0.59) mg/L FEU Sodium (136-145) mmol/L Potassium (3.4-4.5) mmol/L Chloride (98-107) mmol/L Carbon Dioxide (22-29) mmol/L Anion Gap (7-16) BUN (8-23) mg/dL Creatinine (0.7-1.2) mg/dL Estimated GFR mL/min Random Glucose (74-109) mg/dL Calcium (8.8-10.2) mg/dL Total Bilirubin (0.2-1.0) mg/dL AST (10.0-50.0) U/L ALT (<41) U/L Alkaline Phosphatase (40-129) U/L Troponin T < 0.010 (0-0.010) ng/mL NT-Pro-B Natriuret Pep (<125) pg/mL Total Protein (6.6-8.7) g/dL Albumin (4.0-5.0) g/dL Globulin (1.4-4.8) gm/dL Albumin/Globulin Ratio (1.1-1.8) Disposition Disposition: Discharge Clinical Impression: SOB (shortness of breath) Chest pain Qualifiers: Chest pain type: unspecified Qualified Code(s): R07.9 - Chest pain, unspecified Disposition: Home, Self-Care Condition: (1) Good Instructions: Dyspnea (ED) Additional Instructions: follow up with the [facility] regarding mass in chest and AAA and shortness of breath and chest pain. return sooner if worse. take aspirin 81mg a day Prescriptions: Prednisone [Prednisone 20Mg] 20 mg PO Q12HR #4 tab Albuterol Sulfate [Proventil Hfa] 1 - 2 puff INH .EVERY 4-6 HOURS PRN #1 inhaler PRN Reason: Difficulty In Breathing Forms: Patient Portal Access Quality - Quality Measures Quality Measures: N/A - Blood Pressure Screening Does Patient Have Any of the Following: No Blood Pressure Classification: Hypertensive Reading Systolic Measurement: 118 Diastolic Measurement: 99 Screening for High Blood Pressure: < Pre-Hypertensive BP, F/U Documented > [ G8950] Pre-Hypertensive Follow-up Interventions: Follow-up with rescreen every year.
[2018-10-19] MEDS ORDERED: METHYLPREDNISOLONE PF 125MG/VIAL IVP ONE (15:41)
--- NOTE | 2018-10-20 06:39 | CT ANGIOGRAM REPORT ---
EXAM: CTA OF THE CHEST WITH CONTRAST HISTORY: CHEST PAIN. TECHNIQUE: CTA of the chest was performed after intravenous administration of 80 ml of Omnipaque 350 contrast material. Sagittal and coronal MIP images were performed on an independent workstation. FINDINGS: There is suboptimal timing of the contrast bolus. No large pulmonary embolism is appreciated. The thoracic aorta appears normal. There is underlying centrilobular emphysematous change. There are multiple nodular densities throughout both lung rao. The largest is located in the right lower lobe and measures 3.4 cm x 2.6 cm. This previously measured 2.3 x 2.0 cm. Stable indeterminate lesion in the right lobe of the liver. Underlying fatty infiltration. The kidneys are adequately perfused. IMPRESSION: 1. SUBOPTIMAL TIMING OF THE CONTRAST BOLUS. NO LARGE PULMONARY EMBOLISM IS APPRECIATED. 2. INDETERMINATE INCREASE IN SIZE OF THE MASS IN THE RIGHT LOWER LOBE. CURRENT MEASUREMENTS ARE 3.4 CM X 2.6 CM. THERE IS UNDERLYING CENTRILOBULAR EMPHYSEMATOUS CHANGE. THERE ARE MULTIPLE NODULAR DENSITIES THROUGHOUT BOTH LUNG RAO. 3. STABLE INDETERMINATE LOW DENSITY LESION IN THE LIVER. UNDERLYING FATTY INFILTRATION. JOB NUMBER: [id number] MTDD
== END 2018-10-19 17:54 | disposition home or self-care (01) ==
LOC: ER 11:43
DX: R07.9 Chest pain, unspecified (principal); R06.02 Shortness of breath; R05 Cough; E11.9 Type 2 diabetes mellitus without complications; I71.4 Abdominal aortic aneurysm, without rupture; Z87.891 Personal history of nicotine dependence
CPT/HCPCS: 99284 ×2; 96374; 85025; 80053; 84484; 85379; 83880; 71275; 94640; 93005; 93010; Q9967; J2930

== ENCOUNTER 2019-03-01 13:41 | Emergency (ER) | payer OTHER, MEDICARE ==
[2019-03-01] MEDS ORDERED: METHYLPREDNISOLONE PF 125MG/VIAL IVP ONE (14:24)
[2019-03-01] MEDS ORDERED: HYDROMORPHONE HCL 2 MG/ML VIAL IVP ONE (14:26)
[2019-03-01 14:45] LABS: HEMATOCRIT 47.1 % (42.0-52.0); HEMOGLOBIN 15.6 gm/dl (14.0-18.0); MEAN CELL VOLUME 88.9 fl (81-97); MEAN CORPUSCULAR HEMOGLOBIN 29.4 pg (27-33); MEAN CORPUSCULAR HGB CONC 33.1 g/dl (32-36); MEAN PLATELET VOLUME 10.2 fl (7.4-10.4); PLATELET COUNT 230 K/uL (130-400); RED CELL DISTRIBUTION WIDTH 12.7 % (11.5-14.5); WHITE BLOOD COUNT W/O DIFF 5.4 K/uL (4.2-12.2)
[2019-03-01 14:55] LABS: BLOOD UREA NITROGEN 14 mg/dL (8-23); EST GLOMERULAR FILTRATION RATE > 60 mL/min
[2019-03-01 14:57] LABS: GLUCOSE,RANDOM 311 mg/dL (74-109)
--- NOTE | 2019-03-01 16:23 | Emergency Department Record ---
History of Present Illness - General Chief Complaint: Difficulty Breathing Stated Complaint: BREATHING TROUBLE Time Seen by Provider: 03/01/19 14:08 Source: Patient Mode of Arrival: Ambulatory Limitations: No limitations - History of Present Illness Initial Comments: pt dxd w lung squamous cell carcinoma last fall. he had a bx in january. [facility] he has become increasingly sob and had hemoptysis the last week. the pain is on the r . the CA is on the left MD Complaint: Cough, Shortness of breath Onset/Timin -: Days(s) Severity: Moderate Severity scale (1-10): 3 Quality: Aching, Burning Improves With: Nothing Worsens With: Nothing Associated Symptoms: Cough, Hemoptysis, Sputum production - Related Data Home Oxygen Therapy: No Home Medications Medication Instructions Recorded Confirmed Last Taken Tiotropium Tuttle [Spiriva 4 gm IH DAILY 03/01/19 03/01/19 1 Day Ago Respimat] ~02/28/19 Previous Rx's Medication Instructions Recorded Albuterol Sulfate [Proventil Hfa] 1 - 2 puff INH .EVERY 4-6 HOURS 10/19/18 PRN #1 inhaler Hydrocodone/Acetaminophen [Marcellus 1 each PO Q6HR #12 tablet 03/01/19 5-325 Tablet] Allergies Allergy/AdvReac Type Severity Reaction Status Date / Time Penicillins Allergy HIVES Verified 03/01/19 13:57 Travel Screening - Travel/Exposure Within Last 30 Days Have you traveled within the last 30 days?: No - Travel/Exposure Within Last Year Have you traveled outside the [place] in the last year?: No - Additonal Travel Details Have you been exposed to anyone with a communicable illness?: No - Travel Symptoms Symptom Screening: None Review of Systems Reviewed: No additional complaints except as noted below Constitutional: Reports: As per HPI. Denies: Chills, Fever, Malaise, Night sweats, Weakness, Weight change Eyes: Reports: As per HPI. Denies: Eye discharge, Eye pain, Photophobia, Vision change ENT: Reports: As per HPI. Denies: Congestion, Dental pain, Ear pain, Epistaxis , Hearing loss, Throat pain Respiratory: Reports: As per HPI, Cough, Dyspnea, Hemoptysis. Denies: Stridor, Wheezes Cardiovascular: Reports: As per HPI. Denies: Arrhythmia, Chest pain, Dyspnea on exertion, Edema, Murmurs, Orthopnea, Palpitations, Paroxysmal nocturnal dyspnea, Rheumatic Fever, Syncope Endocrine: Reports: As per HPI. Denies: Fatigue, Heat or cold intolerance, Polydipsia, Polyuria Gastrointestinal: Reports: As per HPI. Denies: Abdominal pain, Constipation, Diarrhea, Hematemesis, Hematochezia, Melena, Nausea, Vomiting Genitourinary: Reports: As per HPI. Denies: Dysuria, Frequency, Hematuria, Incontinence, Retention, Testicular pain, Testicular mass, Urgency Musculoskeletal: Reports: As per HPI. Denies: Arthralgia, Back pain, Gout, Joint swelling, Myalgia, Neck pain Skin: Reports: As per HPI. Denies: Bruising, Change in color, Change in hair/ nails, Lesions, Pruritus, Rash Neurological: Reports: As per HPI. Denies: Abnormal gait, Confusion, Headache, Numbness, Paresthesias, Seizure, Tingling, Tremors, Vertigo, Weakness Psychiatric: Reports: As per HPI. Denies: Anxiety, Auditory hallucinations, Depression, Homicidal thoughts, Suicidal thoughts, Visual hallucinations Hematological/Lymphatic: Reports: As per HPI. Denies: Anemia, Blood Clots, Easy bleeding, Easy bruising, Swollen glands Past Medical History - SOCIAL HISTORY Smoking Status: Former smoker Alcohol Use: None Drug Use: None - RESPIRATORY Hx Respiratory Disorders: Yes Hx Bronchitis: Yes Hx COPD: Yes Hx Pneumonia: Yes - CARDIOVASCULAR Hx Cardio Disorders: Yes Hx Chest Pain: Yes Comment:: Hx AAA, descending aortic aneurysm - NEURO Hx Neuro Disorders: Yes Hx Neuropathy: Yes - GI Hx GI Disorders: No - Hx Genitourinary Disorders: Yes Hx Prostate Problems: Yes - ENDOCRINE Hx Endocrine Disorders: Yes Hx Diabetes: Yes (oral controlled) - MUSCULOSKELETAL Hx Musculoskeletal Disorders: No - PSYCH Hx Psych Problems: No - HEMATOLOGY/ONCOLOGY Hx Hematology/Oncology Disorders: No Family Medical History Any Significant Family History?: Yes Hx Diabetes: Mother Hx Heart Disease: Father Physical Exam - General General Appearance: Alert, Oriented x3, Cooperative, Mild distress - Head Head exam: Normal inspection - Eye Eye exam: Normal appearance, PERRL, EOMI Pupils: Normal accommodation - ENT ENT exam: Normal exam, Mucous membranes moist, Normal external ear exam, Normal orophraynx Ear exam: Normal external inspection. negative: External canal tenderness Nasal Exam: Normal inspection. negative: Discharge, Sinus tenderness Mouth exam: Normal external inspection, Tongue normal Teeth exam: Normal inspection. negative: Dental caries Throat exam: Normal inspection. negative: Tonsillar erythema, Tonsillar exudate - Neck Neck exam: Normal inspection, Full ROM. negative: Tenderness - Respiratory Respiratory exam: Rales, Respiratory distress, Wheezes - Cardiovascular Cardiovascular Exam: Normal rhythm, Normal heart sounds, Tachycardia - GI/Abdominal GI/Abdominal exam: Soft, Normal bowel sounds. negative: Tenderness - Rectal Rectal exam: Deferred - exam: Deferred - Extremities Extremities exam: Normal inspection, Full ROM, Normal capillary refill. negative: Tenderness - Back Back exam: Reports: Normal inspection, Full ROM. Denies: Muscle spasm, Rash noted, Tenderness - Neurological Neurological exam: Alert, CN II-XII intact, Normal gait, Oriented X3 - Psychiatric Psychiatric exam: Normal affect, Normal mood - Skin Skin exam: Dry, Intact, Normal color, Warm Course Vital Signs 03/01/19 03/01/19 13:49 15:37 Temperature 97.6 F Pulse Rate 112 H Pulse Rate [ 87 Pulse Ox Probe] Respiratory 24 20 Rate Blood Pressure 160/86 Blood Pressure 133/82 [Right Arm] Pulse Ox 96 95 - Reevaluation(s) Reevaluation #1: 03/01/19 17:51 ct shows increase in size of tumor. pt wants to f/u with or tomorrow Medical Decision Making - Lab Data Result diagrams: 03/01/19 14:35 03/01/19 14:35 Lab Results 03/01/19 03/01/19 Range/Units 14:35 14:35 WBC 5.4 (4.2-12.2) K/uL RBC 5.30 (4.40-5.70) M/uL Hgb 15.6 (14.0-18.0) gm/dl Hct 47.1 (42.0-52.0) % MCV 88.9 (81-97) fl MCH 29.4 (27-33) pg MCHC 33.1 (32-36) g/dl RDW 12.7 (11.5-14.5) % Plt Count 230 (130-400) K/uL MPV 10.2 (7.4-10.4) fl Neutrophils % 41.0 L (47-80) % Eosinophils % Not Reportable Basophils % Not Reportable Lymphocytes 39.0 (16-45) % Monocytes 17.0 H (0-9) % Eosinophil Count 3.0 (0-6) % Sodium 139 (136-145) mmol/L Potassium 3.9 (3.4-4.5) mmol/L Chloride 98 (98-107) mmol/L Carbon Dioxide 28.0 (22-29) mmol/L Anion Gap 13.0 (7-16) BUN 14 (8-23) mg/dL Creatinine 1.0 (0.7-1.2) mg/dL Estimated GFR > 60 mL/min Random Glucose 311 H (74-109) mg/dL Calcium 9.5 (8.8-10.2) mg/dL Disposition Disposition: Discharge Clinical Impression: Pleurisy Lung cancer Qualifiers: Laterality: right Lung location: lower lobe of lung Qualified Code(s): C34.31 - Malignant neoplasm of lower lobe, right bronchus or lung Disposition: Home, Self-Care Condition: (1) Good Instructions: Pleurisy (ED), Hemoptysis (ED) Additional Instructions: [facility] return sooner if worse. naprosyn with food for pain Prescriptions: Hydrocodone/Acetaminophen [Marcellus 5-325 Tablet] 1 each PO Q6HR #12 tablet Forms: Patient Portal Access Quality - Quality Measures Quality Measures: N/A - Blood Pressure Screening Does Patient Have Any of the Following: No Blood Pressure Classification: Pre-Hypertensive BP Reading Systolic Measurement: 160 Diastolic Measurement: 86 Screening for High Blood Pressure: < Pre-Hypertensive BP, F/U Documented > [ G8950] Pre-Hypertensive Follow-up Interventions: Follow-up with rescreen every year.
--- NOTE | 2019-03-03 07:45 | CT ANGIOGRAM REPORT ---
EXAM: CTA OF THE CHEST HISTORY: LEFT SIDED CHEST PAIN, COUGH, KNOWN RIGHT LUNG MASS RECENTLY BIOPSIED. TECHNIQUE: CT angiogram of the chest was performed with 87 ml Omnipaque 350 intravenous contrast. Additional maximum intensity projection images created on an independent workstation. Comparison: CTA of the chest 10/19/18. FINDINGS: No pulmonary artery filling defects to suggest embolism. Moderate atherosclerotic plaque involving the proximal descending thoracic aorta; no evidence of thoracic aortic aneurysm or dissection. No significant pericardial fluid collection. Mild interval enlargement of a subcarinal mediastinal lymph node measuring up to 1.1 cm on today's exam, previously 0.6 cm. Left lower paratracheal 10 mm short axis lymph node is stable from prior. Right lower lobe solid mass measures 4.9 x 3.7 cm, on 10/19/18 comparison the lesion measured 3.8 x 2.8 cm. Small foci of intralesional gas, may represent cavitation or changes from recent biopsy. At least two adjacent satellite nodules, largest measuring 5 mm, similar from prior. Multiple additional bilateral noncalcified pulmonary nodules, the largest of which measure up to 7 mm at both lung apices and in the medial left lower lobe, stable from prior study. Diffuse pulmonary emphysema. No pleural effusion or pneumothorax. Suggestion of hepatic steatosis. Limited assessment of the osseous structures on CTA protocol study; no acute osseous findings or progressive focal bone lesion is detected. IMPRESSION: 1. NO EVIDENCE OF PULMONARY EMBOLISM OR OTHER ACUTE INTRATHORACIC PROCESS. 2. INTERVAL ENLARGEMENT OF RIGHT LOWER LOBE SOLID LUNG MASS SINCE 10/19/18 COMPARISON. 3. MULTIPLE NONCALCIFIED SOLID SUBCENTIMETER PULMONARY NODULES BILATERALLY, APPEARING STABLE IN SIZE FROM 10/19/18. 4. PULMONARY EMPHYSEMA. 5. PROMINENT SUBCARINAL LYMPH NODE IS MILDLY INCREASED IN SIZE FROM 10/19/18. ADDITIONAL SUBCENTIMETER MEDIASTINAL LYMPH NODES APPEAR STABLE. 6. HEPATIC STEATOSIS. ADDITIONALLY, A SMALL LOW ATTENUATION LESION NEAR THE RIGHT HEPATIC DOME IS LESS WELL SEEN ON TODAY'S STUDY, BUT NOT APPRECIABLY CHANGED IN SIZE. JOB NUMBER: [id number] [facility]
== END 2019-03-01 18:03 | disposition home or self-care (01) ==
LOC: ER 13:41
DX: R09.1 Pleurisy (principal); R06.02 Shortness of breath; C34.31 Malignant neoplasm of lower lobe, right bronchus or lung; J44.9 Chronic obstructive pulmonary disease, unspecified; Z87.891 Personal history of nicotine dependence
CPT/HCPCS: 71275; 80048; 85027; 96374; 96375; 99284; J2930

== ENCOUNTER 2019-03-20 21:43 | Emergency (ER) | payer MEDICARE, OTHER ==
--- NOTE | 2019-03-20 22:28 | Emergency Department Record ---
History of Present Illness - General Chief complaint: Hypergylcemia Stated complaint: BLOOD SUGAR 450, DIZZY , DISORIENTED Time Seen by Provider: 03/20/19 22:16 Source: Patient Mode of Arrival: Ambulatory Limitations: No limitations - History of Present Illness Initial comments: The patient is here due to feeling weak all over and intermittent disorientation for the last 24 hours. He also has had a CHUA off and on today with an elevated blood sugar. The patient did take his sugar at home and find it to be 450. He denies any nausea, vomiting, diarrhea, CP, SOB, or VLADIMIR. He is presently being evaluated for lung CA in [place] and has had a bronch and biopsy recently. MD Complaint: Generalized weakness Onset/Timin -: Hour(s) Severity: Moderate Severity scale (1-10): 6 Consistency: Constant, Getting worse Improves with: None Worsens with: None Context: Recent illness Associated Symptoms: Confusion - Michel Coma Scale Eye Response: (4) Open spontaneously Motor Response: (6) Obeys commands Verbal Response: (5) Oriented Michel Total: 15 - Related Data Previous Rx's Medication Instructions Recorded Albuterol Sulfate [Proventil Hfa] 1 - 2 puff INH .EVERY 4-6 HOURS 10/19/18 PRN #1 inhaler Hydrocodone/Acetaminophen [Edgar 1 each PO Q6HR #12 tablet 03/01/19 5-325 Tablet] Allergies Allergy/AdvReac Type Severity Reaction Status Date / Time Penicillins Allergy HIVES Verified 03/01/19 13:57 Travel Screening - Travel/Exposure Within Last 30 Days Have you traveled within the last 30 days?: No - Travel Symptoms Symptom Screening: None Review of Systems Constitutional: Denies: Chills, Fever Eyes: Denies: Eye discharge ENT: Denies: Congestion Respiratory: Denies: Cough, Dyspnea Cardiovascular: Denies: Arrhythmia Endocrine: Denies: Fatigue Gastrointestinal: Denies: Abdominal pain Genitourinary: Denies: Dysuria Musculoskeletal: Denies: Arthralgia Neurological: Denies: Abnormal gait Past Medical History - SOCIAL HISTORY Smoking Status: Former smoker Alcohol Use: None Drug Use: None - RESPIRATORY Hx Respiratory Disorders: Yes Hx Bronchitis: Yes Hx COPD: Yes Hx Pneumonia: Yes - CARDIOVASCULAR Hx Cardio Disorders: Yes Hx Chest Pain: Yes Comment:: Hx AAA, descending aortic aneurysm - NEURO Hx Neuro Disorders: Yes Hx Neuropathy: Yes - GI Hx GI Disorders: No - Hx Genitourinary Disorders: Yes Hx Prostate Problems: Yes - ENDOCRINE Hx Endocrine Disorders: Yes Hx Diabetes: Yes (oral controlled) - MUSCULOSKELETAL Hx Musculoskeletal Disorders: No - PSYCH Hx Psych Problems: No - HEMATOLOGY/ONCOLOGY Hx Hematology/Oncology Disorders: No Family Medical History Any Significant Family History?: Yes Hx Diabetes: Mother Hx Heart Disease: Father Physical Exam - General General Appearance: Alert, Oriented x3, Cooperative, No acute distress - Head Head exam: Atraumatic, Normocephalic, Normal inspection - Eye Eye exam: Normal appearance, PERRL - ENT Throat exam: Normal inspection. negative: Tonsillar erythema, Tonsillar exudate - Neck Neck exam: Normal inspection, Full ROM. negative: Tenderness - Respiratory Respiratory exam: Normal lung sounds bilaterally. negative: Respiratory distress - Cardiovascular Cardiovascular Exam: Regular rate, Normal rhythm, Normal heart sounds - GI/Abdominal GI/Abdominal exam: Soft, Normal bowel sounds. negative: Tenderness - Extremities Extremities exam: Normal inspection, Full ROM, Normal capillary refill. negative: Tenderness - Back Back exam: Reports: Normal inspection, Full ROM. Denies: Muscle spasm, Rash noted, Tenderness - Neurological Neurological exam: Alert, Normal gait, Oriented X3 (The patient is answering all questions appropriately and appears very calm with proper judgement.), Other (Neg Drift or Rhomberg exams.). negative: Abnormal gait, Altered, Motor sensory deficit - Skin Skin exam: negative: Rash Course Vital Signs 03/20/19 03/20/19 21:55 22:00 Temperature 97.5 F L 97.5 F L Pulse Rate 93 H Pulse Rate [ 93 H Left] Respiratory 16 22 Rate Blood Pressure 179/47 Blood Pressure 179/47 [Left Arm] Pulse Ox 95 95 - Reevaluation(s) Reevaluation #1: The patient is doing a lot better at this time. His CHUA has resolved and his repeat blood sugar is much improved. He is to double his Metformin and see his PCP next week for recheck. 03/21/19 01:29 Medical Decision Making - Data Complexity MDM Data: Labs Ordered and/or Reviewed, X-Ray Ordered and/or Reviewed - Lab Data Result diagrams: 03/20/19 22:15 03/20/19 22:15 - Radiology Data Radiology results: Report reviewed (Head CT: Neg.) Disposition Disposition: Discharge Clinical Impression: Hyperglycemia Disposition: Home, Self-Care Condition: (2) Stable Instructions: Diabetic Hyperglycemia (ED) Additional Instructions: Please drink plenty of fluids and stay away from sugars. Please double your Metformin dose and see your family doctor later this week for recheck. Return to the ER for any worsening symptoms. Forms: Patient Portal Access Time of Disposition: 01:31 Quality - Quality Measures Quality Measures: N/A - Blood Pressure Screening View Details: Yes Does Patient Have Any of the Following: No Blood Pressure Classification: Hypertensive Reading Systolic Measurement: 179 Diastolic Measurement: 47 Screening for High Blood Pressure: < First Hypertensive BP, F/U Documented > [ G8950] First Hypertensive Follow-up Interventions: Referral to alternative/primary care provider.
[2019-03-20] MEDS ORDERED: 0.9 % SODIUM CHLORIDE 1,000 ML BAG IV ONE (22:33)
[2019-03-20 22:45] LABS: BASO % 0.4 % (0-6); EOS % 2.4 % (0-6); GRAN % 56.4 % (47-80); HEMATOCRIT 44.9 % (42.0-52.0); HEMOGLOBIN 14.5 gm/dl (14.0-18.0); LYMPH % 30.3 % (16-45); MEAN CELL VOLUME 91.1 fl (81-97); MEAN CORPUSCULAR HEMOGLOBIN 29.4 pg (27-33); MEAN CORPUSCULAR HGB CONC 32.3 g/dl (32-36); MEAN PLATELET VOLUME 10.1 fl (7.4-10.4); MONO % 10.5 % (0-9); PLATELET COUNT 277 K/uL (130-400); RED BLOOD COUNT 4.93 M/uL (4.40-5.70); RED CELL DISTRIBUTION WIDTH 13.1 % (11.5-14.5)
[2019-03-20 22:46] LABS: URINE APPEARANCE CLEAR; URINE BILIRUBIN NEGATIVE (NEGATIVE); URINE BLOOD TRACE-I (NEGATIVE); URINE COLOR YELLOW; URINE KETONE NEGATIVE (NEGATIVE); URINE LEUKOCYTE ESTERASE NEGATIVE (NEGATIVE); URINE NITRITE NEGATIVE (NEGATIVE); URINE PROTEIN NEGATIVE (NEGATIVE); URINE UROBILINOGEN 0.2 E.U./dL (0.20 - 1.00)
[2019-03-20 22:47] LABS: URINE GLUCOSE (UA) >=1000 mg/dL (NEGATIVE)
[2019-03-20] MEDS ORDERED: ACETAMINOPHEN 325 MG TAB PO ONE (22:51)
[2019-03-20 22:53] LABS: URINE EPITHELIAL CELLS NONE SEEN (FEW); URINE RBC 0 - 2 (NONE SEEN); URINE WBC NONE SEEN (0-2/hpf)
[2019-03-20 23:01] LABS: ACETONE,SERUM NEGATIVE (NEGATIVE); BLOOD UREA NITROGEN 16 mg/dL (8-23)
[2019-03-20 23:02] LABS: EST GLOMERULAR FILTRATION RATE > 60 mL/min; TOTAL PROTEIN 6.5 g/dL (6.6-8.7)
[2019-03-20 23:07] LABS: ALBUMIN 3.9 g/dL (4.0-5.0); ALKALINE PHOSPHATASE 85 U/L (40-129); ALT/SGPT 16 U/L (<41); AST/SGOT 22 U/L (10.0-50.0)
[2019-03-20 23:09] LABS: BILIRUBIN,DIRECT < 0.2 mg/dL (0-0.3)
[2019-03-20] MEDS ORDERED: HUMULIN R 100 UNIT/ML VIAL IV ONE (23:09)
[2019-03-20 23:16] LABS: GLUCOSE,RANDOM 530 mg/dL (74-109)
== END 2019-03-21 01:44 | disposition home or self-care (01) ==
LOC: ER 21:43
DX: E11.65 Type 2 diabetes mellitus with hyperglycemia (principal); R42 Dizziness and giddiness; R53.1 Weakness; R51 Headache; R41.0 Disorientation, unspecified; J44.9 Chronic obstructive pulmonary disease, unspecified; C34.90 Malignant neoplasm of unspecified part of unspecified bronchus or lung; Z87.891 Personal history of nicotine dependence; Z79.84 Long term (current) use of oral hypoglycemic drugs
CPT/HCPCS: 36416; 70450; 80048; 80076; 81001; 82009; 82800; 82948; 85025; 96374; 99284; J7030

== ENCOUNTER 2019-08-09 13:28 | Emergency (ER) | payer OTHER ==
[2019-08-09] MEDS ORDERED: ONDANSETRON HCL IV 4 MG/2 ML VIAL IV ONE (13:59)
[2019-08-09] MEDS ORDERED: 0.9 % SODIUM CHLORIDE 1,000 ML BAG IV ONE (13:59)
--- NOTE | 2019-08-09 14:13 | Emergency Department Record ---
History of Present Illness - General Chief Complaint: Abdominal Pain Stated Complaint: ABD/BACK PAIN, Time Seen by Provider: 08/09/19 13:37 Source: Patient Mode of Arrival: Ambulatory Limitations: No limitations - History of Present Illness Initial Comments: The patient is here due to upper abdominal pain off and on for 2 weeks. The pain is sharp and stabbing and mainly in the upper abdomen and RUQ with intermittent radiation to the back. He denies any nausea, vomiting, diarrhea, dysuria, or fever. The patient denies any hx of similar problems but he does have a hx of an AAA measuring 5.2 cm last month at the [facility]. The patient states food does not af fect the pain and his only abdominal surgery is a hernia repair. The patient does have a hx of Lung CA and just completed radiation therapy for it but has not been back for a recheck to see if it is gone. MD Complaint: Abdominal pain Onset/Timin -: Week(s) Location: Diffuse Radiation: Back Severity scale (1-10): 5 Quality: Burning, Dull Consistency: Constant Improves With: Nothing Worsens With: Nothing Associated Symptoms: Denies other symptoms - Related Data Home Medications Medication Instructions Recorded Confirmed Last Taken Aspirin [Aspirin EC] 81 mg PO DAILY 08/09/19 08/09/19 Unknown Allergies Allergy/AdvReac Type Severity Reaction Status Date / Time Penicillins Allergy HIVES Verified 03/01/19 13:57 Travel Screening - Travel/Exposure Within Last 30 Days Have you traveled within the last 30 days?: No Review of Systems Constitutional: Denies: Chills, Fever Eyes: Denies: Eye discharge ENT: Denies: Congestion Respiratory: Denies: Cough, Dyspnea Cardiovascular: Denies: Arrhythmia Endocrine: Denies: Fatigue Gastrointestinal: Reports: Abdominal pain. Denies: Diarrhea, Nausea Genitourinary: Denies: Dysuria Musculoskeletal: Denies: Arthralgia Neurological: Denies: Abnormal gait Past Medical History - SOCIAL HISTORY Smoking Status: Former smoker - RESPIRATORY Hx Respiratory Disorders: Yes Hx Bronchitis: Yes Hx COPD: Yes Hx Pneumonia: Yes - CARDIOVASCULAR Hx Cardio Disorders: Yes Hx Chest Pain: Yes Comment:: Hx AAA, descending aortic aneurysm - NEURO Hx Neuro Disorders: Yes Hx Neuropathy: Yes - GI Hx GI Disorders: No - Hx Genitourinary Disorders: Yes Hx Prostate Problems: Yes - ENDOCRINE Hx Endocrine Disorders: Yes Hx Diabetes: Yes (oral controlled) - MUSCULOSKELETAL Hx Musculoskeletal Disorders: No - PSYCH Hx Psych Problems: No - HEMATOLOGY/ONCOLOGY Hx Hematology/Oncology Disorders: No Family Medical History Any Significant Family History?: Yes Hx Diabetes: Mother Hx Heart Disease: Father Physical Exam - General General Appearance: Alert, Oriented x3, Cooperative, No acute distress - Head Head exam: Atraumatic, Normocephalic - Eye Eye exam: Normal appearance, PERRL - ENT Throat exam: Normal inspection. negative: Tonsillar erythema, Tonsillar exudate - Neck Neck exam: Normal inspection, Full ROM. negative: Tenderness - Respiratory Respiratory exam: Normal lung sounds bilaterally. negative: Respiratory distress - Cardiovascular Cardiovascular Exam: Regular rate, Normal rhythm, Normal heart sounds - GI/Abdominal GI/Abdominal exam: Soft, Tenderness (There is diffuse upper abdominal tenderness in the epigastric and RUQ area.). negative: Guarding, Hernia, Rebound, Rigid - Extremities Extremities exam: Normal inspection, Full ROM, Normal capillary refill. negative: Tenderness - Back Back exam: Reports: Normal inspection - Neurological Neurological exam: Alert, Normal gait. negative: Abnormal gait, Motor sensory deficit Course Vital Signs 08/09/19 13:40 Temperature 97.8 F Pulse Rate 92 H Respiratory 20 Rate Blood Pressure 112/85 Pulse Ox 94 L - Reevaluation(s) Reevaluation #1: The patient is doing better at this time. His pain is presently gone but he does have mild upper abdominal tenderness. I did discus the CT result and due to the 5.6x5.4 cm Infrarenal AAA I do feel he needs urgent evaluation with Vascular surgery. [place] [facility] [place] did discuss the case with Dr. Kohler [place] [facility] him with a direct admission. 08/09/19 16:10 Medical Decision Making - Data Complexity MDM Data: Labs Ordered and/or Reviewed, X-Ray Ordered and/or Reviewed - Lab Data Result diagrams: 08/09/19 14:10 08/09/19 14:10 - Radiology Data Radiology results: Report reviewed (CT: Infra-renal AAA measuring 5.6x5.4. Neg for rupture.) Disposition Disposition: Transfer Clinical Impression: AAA (abdominal aortic aneurysm) Qualifiers: Presence of rupture: without rupture Qualified Code(s): I71.4 - Abdominal aortic aneurysm, without rupture Disposition: Acute Care Hospital [place] [facility] [place] For Transfer: Vascular Surgery Accepting Physician: Edita. Time Discussed w/Accepting Physician: 16:12 Condition: (2) Stable Forms: Patient Portal Access Time of Disposition: 16:12 Quality - Quality Measures Quality Measures: N/A - Blood Pressure Screening View Details: Yes Does Patient Have Any of the Following: No Blood Pressure Classification: Pre-Hypertensive BP Reading Systolic Measurement: 112 Diastolic Measurement: 85 Screening for High Blood Pressure: < Pre-Hypertensive BP, F/U Documented > [G8950] Pre-Hypertensive Follow-up Interventions: Referral to alternative/primary care provider.
[2019-08-09 14:18] LABS: ABSOLUTE NEUTROPHIL COUNT 3.58; BASO % 0.7 % (0-6); EOS % 2.5 % (0-6); GRAN % 63.6 % (47-80); HEMATOCRIT 48.3 % (42.0-52.0); HEMOGLOBIN 15.5 gm/dl (14.0-18.0); LYMPH % 24.7 % (16-45); MEAN CELL VOLUME 89.8 fl (81-97); MEAN CORPUSCULAR HEMOGLOBIN 28.8 pg (27-33); MEAN CORPUSCULAR HGB CONC 32.1 g/dl (32-36); MEAN PLATELET VOLUME 8.9 fl (7.4-10.4); MONO % 8.5 % (0-9); PLATELET COUNT 255 K/uL (130-400); RED BLOOD COUNT 5.38 M/uL (4.40-5.70); RED CELL DISTRIBUTION WIDTH 13.2 % (11.5-14.5); WHITE BLOOD COUNT W/O DIFF 5.6 K/uL (4.2-12.2)
[2019-08-09 14:27] LABS: BLOOD UREA NITROGEN 11 mg/dL (8-23); CREATININE 0.8 mg/dL (0.7-1.2); EST GLOMERULAR FILTRATION RATE > 60 mL/min
[2019-08-09 14:28] LABS: LIPASE 15 U/L (13-60); TOTAL PROTEIN 6.9 g/dL (6.6-8.7)
[2019-08-09 14:30] LABS: GLUCOSE,RANDOM 119 mg/dL (74-109)
[2019-08-09 14:32] LABS: ALT/SGPT 10 U/L (<41)
[2019-08-09 14:33] LABS: ALBUMIN 4.4 g/dL (4.0-5.0); ALKALINE PHOSPHATASE 86 U/L (40-129); AST/SGOT 18 U/L (10.0-50.0)
[2019-08-09 14:35] LABS: BILIRUBIN,DIRECT < 0.2 mg/dL (0-0.3)
[2019-08-09 14:55] LABS: URINE APPEARANCE CLEAR; URINE BILIRUBIN NEGATIVE (NEGATIVE); URINE BLOOD NEGATIVE (NEGATIVE); URINE COLOR YELLOW; URINE GLUCOSE (UA) NEGATIVE (NEGATIVE); URINE KETONE NEGATIVE (NEGATIVE); URINE LEUKOCYTE ESTERASE NEGATIVE (NEGATIVE); URINE NITRITE NEGATIVE (NEGATIVE); URINE PROTEIN NEGATIVE (NEGATIVE); URINE UROBILINOGEN 0.2 E.U./dL (0.20 - 1.00)
--- NOTE | 2019-08-10 15:16 | CT SCAN REPORT ---
EXAM: CT SCAN OF THE ABDOMEN AND PELVIS WITH CONTRAST HISTORY: BACK AND ABDOMINAL PAIN FOR THE PAST TWO WEEKS. HISTORY OF ABDOMINAL AORTIC ANEURYSM. TECHNIQUE: Standard CT imaging of the abdomen and pelvis was performed with oral and intravenous contrast. 100 ml of Omnipaque 300 were administered. Comparison: Previous chest CTA dated 03/01/19 and abdominal CTA dated 03/02/15. FINDINGS: The previously noted mass within the right lower lobe is no longer identified. Fibrotic changes are present. There is a 6 mm noncalcified nodule within the right lower lobe on image number 4 of 172. 4 mm and 3 mm noncalcified nodules at the left lung base are also unchanged. There is diffuse hepatic steatosis. A small cyst within the superior right hepatic lobe is unchanged. The gallbladder, biliary tree, pancreas, spleen, and adrenal glands are normal. Tiny hypodensities within both kidneys are too small to accurately characterize, but suggestive of cysts. There is no acute urinary tract pathology. An infrarenal abdominal aortic aneurysm is present. This measures 5.6 cm transverse x 4.5 cm AP. This has increased in size from the 2015 examination where it measured 4.7 cm transverse x 4.1 cm AP. There is peripheral thrombus. There is no evidence for dissection or rupture. The aneurysm extends down to, but does not appear to involve the bifurcation. There are mild atherosclerotic changes within the iliac arteries bilaterally. There is no retroperitoneal lymphadenopathy. The stomach and epigastrium are normal. There are scattered diverticula throughout the colon with the greatest concentration in the descending and sigmoid regions. There is no evidence for acute diverticulitis. The small bowel loops are normal. The appendix is visualized and is unremarkable. There is no pneumoperitoneum or ascites. The urinary bladder is normal. The prostate gland is enlarged. There are small fat containing umbilical and left inguinal hernias. Degenerative changes are present within the spine. There are no acute osseous abnormalities. A sclerotic area within the right ischium is suggestive of a bone island. Small sclerotic areas within the left iliac bone are also suggestive of bone islands. These were not included on the previous abdominal CTA study. IMPRESSION: 1. NO ACUTE INTRAABDOMINAL PATHOLOGY. 2. INFRARENAL ABDOMINAL AORTIC ANEURYSM MEASURING 5.6 CM TRANSVERSE X 5.4 CM AP. THIS HAS INCREASED IN SIZE FROM THE PRIOR STUDY WHERE IT MEASURED 4.7 X 4.1 CM. 3. COLONIC DIVERTICULOSIS WITH NO DIVERTICULITIS. 4. SMALL FAT CONTAINING UMBILICAL AND LEFT INGUINAL HERNIAS. 5. ADDITIONAL STABLE CHRONIC FINDINGS ABOVE. JOB NUMBER: [id number] [facility]TD[facility]
== END 2019-08-09 17:24 | disposition short-term general hospital (02) ==
LOC: ER 13:28
DX: I71.4 Abdominal aortic aneurysm, without rupture (principal); J44.9 Chronic obstructive pulmonary disease, unspecified; C34.90 Malignant neoplasm of unspecified part of unspecified bronchus or lung; Z87.891 Personal history of nicotine dependence
CPT/HCPCS: 74177; 80048; 80076; 81003; 83690; 85025; 96374; 99285; J7030